=== PATIENT | female | born 1980 | race Caucasian/White ===

== ENCOUNTER → 2016-09-04 | Outpatient (CLI) | payer MEDICAID ==
[2006-06-08 07:35] VITALS: PULSE 70; TEMP 98.6
[~2016-09-04] MED LIST: ALDACTONE 25MG25 M1 PO; AMOXICILLIN 50500 MG PO; AMOXICILLIN 8751 TAB PO; B-12 100 MCG; CELEXA 20MG20 MG/TAB PO; CLARITIN 1010 MG/TAB PO; FLEXERIL 1010 MG/TAB PO; GLUCOPHAGE1000 MG PO; GLUCOPHAGE500 MG/TAB PO; HCTZ 25MG TAB25 MG PO; LEVAQUIN 5500 MG/TA1 PO; LEXAPRO 10MG10 MG PO; NATURE'S BLE1000 MCG PO; NORCO 325 MG-51 TAB PO; PHENERGAN W/CO120 M1 PO; PHENTERMINE15 MG PO; PREDNISONE20 MG PO; PRILOSEC 20MG20 MG PO; TOPROL XL 50MG50 MG PO; VITAMINC1000TA PO; VITAMIND3 5000 PO; ZESTRIL 20MG TA20 MG PO; ZITHROMAX Z PA250 MG PO; ZOCOR5 MG PO; ZOFRAN 4MG T4 MG/TAB PO
== END ==
LOC: COL.RAD 13:22
DX: K76.0 Fatty (change of) liver, not elsewhere classified (principal)

== ENCOUNTER → 2016-09-07 | Outpatient (CLI) | payer MEDICAID ==
[2006-06-08 07:35] VITALS: PULSE 70; TEMP 98.6
[~2016-09-07] VITALS: Ht 170.2 cm; Wt 114.3 kg
== END ==
LOC: LIGHT
DX: E66.8 Other obesity (principal); E88.81 Metabolic syndrome and other insulin resistance; I10 Essential (primary) hypertension; R73.01 Impaired fasting glucose; E66.01 Morbid (severe) obesity due to excess calories; Z68.41 Body mass index [BMI] 40.0-44.9, adult

== ENCOUNTER → 2016-09-11 | Outpatient (CLI) | payer MEDICAID ==
[2006-06-08 07:35] VITALS: PULSE 70; TEMP 98.6
== END ==
LOC: COL.RAD 08:06
DX: R10.84 Generalized abdominal pain (principal); R11.0 Nausea
CPT/HCPCS: A9537; J2805

== ENCOUNTER 2016-09-28 08:55 | Emergency (ER) | payer MEDICAID ==
[~2016-09-28] VITALS: Ht 170.2 cm; Wt 109.1 kg
[~2016-09-28 08:55] MED LIST changes: -AMOXICILLIN 50500 MG PO; -B-12 100 MCG; -VITAMINC1000TA PO; -VITAMIND3 5000 PO; -ZOFRAN 4MG T4 MG/TAB PO
[2016-09-28 08:57] VITALS: BP 141/93; PULSE 73
[2016-09-28] MEDS ORDERED: ZOFRAN 4MG T4 MG/TAB PO (10:12)
[2016-09-28] MEDS ORDERED: AMOXICILLIN 50500 MG PO (10:12)
[2016-09-28 10:45] VITALS: TEMP 97.9
[2016-11-06] MEDS ORDERED: VITAMINC1000TA PO (16:19)
[2016-11-06] MEDS ORDERED: VITAMIND3 5000 PO (16:20)
[2016-11-06] MEDS ORDERED: B-12 100 MCG (16:20)
== END 2016-09-28 10:45 | disposition home or self-care (01) ==
LOC: COL.ER 08:55
DX: H66.91 Otitis media, unspecified, right ear (principal); H61.21 Impacted cerumen, right ear; R11.0 Nausea; I10 Essential (primary) hypertension; Z87.891 Personal history of nicotine dependence

== ENCOUNTER → 2016-10-12 | Outpatient (CLI) | payer MEDICAID ==
[2006-06-08 07:35] VITALS: TEMP 98.6
[~2016-10-12] VITALS: Ht 170.2 cm; Wt 108.0 kg
[~2016-10-12] MED LIST changes: +AMOXICILLIN 50500 MG PO; +B-12 100 MCG; +VITAMINC1000TA PO; +VITAMIND3 5000 PO; +ZOFRAN 4MG T4 MG/TAB PO
[2016-10-12 17:06] VITALS: BP 112/50; PULSE 84
== END ==
LOC: LIGHT 15:27
DX: E88.81 Metabolic syndrome and other insulin resistance (principal); I10 Essential (primary) hypertension; E66.01 Morbid (severe) obesity due to excess calories; Z68.36 Body mass index [BMI] 36.0-36.9, adult

== ENCOUNTER → 2016-11-06 | Outpatient (CLI) | payer MEDICAID ==
[2006-06-08 07:35] VITALS: TEMP 98.6
[~2016-11-06] VITALS: Ht 170.2 cm; Wt 109.8 kg
[2016-11-06 16:21] VITALS: BP 146/100; PULSE 64
== END ==
LOC: LIGHT 15:06
DX: E88.81 Metabolic syndrome and other insulin resistance (principal); E66.01 Morbid (severe) obesity due to excess calories; Z68.37 Body mass index [BMI] 37.0-37.9, adult; Z71.3 Dietary counseling and surveillance; I10 Essential (primary) hypertension

== ENCOUNTER → 2016-11-09 | Outpatient (CLI) | payer MEDICAID ==
[2006-06-08 07:35] VITALS: PULSE 70; TEMP 98.6
== END ==
LOC: LIGHT 09:49
DX: Z02.89 Encounter for other administrative examinations (principal)

== ENCOUNTER 2016-11-22 13:46 | Inpatient (IN) | payer MEDICAID ==
[~2016-11-22] VITALS: Ht 170.2 cm; Wt 107.3 kg
[2016-12-13] VITALS (11 sets, daily range): BP systolic 117–150; BP diastolic 55–88; PULSE 51–86; TEMP 97.2–98.6
[2016-12-14 01:36] VITALS: BP 121/60; PULSE 54; TEMP 97.4
[2016-12-14 05:26] VITALS: BP 121/53; PULSE 46; TEMP 97.7
[2016-12-14 09:21] VITALS: BP 141/78; PULSE 58; TEMP 98.8
[2016-12-14 12:59] VITALS: BP 132/64; PULSE 56; TEMP 98.1
[2016-12-14 16:36] VITALS: BP 146/66; PULSE 55; TEMP 98.5
== END 2016-12-14 17:51 | disposition home or self-care (01) | DRG 621 ==
LOC: OR 12-13 07:33 → SURG 12-13 09:30 → JCC 12-13 12:40
PROVIDERS: Surgery
PROC: 0DB64Z3 Excision of Stomach, Percutaneous Endoscopic Approach, Vertical (ICD-10-PCS; principal; 2016-12-13 09:30)
DX: E66.01 Morbid (severe) obesity due to excess calories (principal); I10 Essential (primary) hypertension; E78.5 Hyperlipidemia, unspecified; Z68.41 Body mass index [BMI] 40.0-44.9, adult; Z87.891 Personal history of nicotine dependence
CPT/HCPCS: A9284; J0690; J1100; J1170; J1885; J2270; J2405; J2704; J2710; J3010; J7120; Q9968

== ENCOUNTER → 2016-11-27 | Outpatient (CLI) | payer MEDICAID ==
[2006-06-08 07:35] VITALS: PULSE 70; TEMP 98.6
== END ==
LOC: LIGHT
DX: Z02.89 Encounter for other administrative examinations (principal)

== ENCOUNTER → 2016-12-18 | Outpatient (CLI) | payer MEDICAID ==
[~2016-12-18] VITALS: Ht 170.2 cm; Wt 104.1 kg
[2016-12-18 13:32] VITALS: BP 131/89; PULSE 69
== END ==
LOC: LIGHT
DX: E88.81 Metabolic syndrome and other insulin resistance (principal); E66.01 Morbid (severe) obesity due to excess calories; Z68.35 Body mass index [BMI] 35.0-35.9, adult; Z71.3 Dietary counseling and surveillance; I10 Essential (primary) hypertension

== ENCOUNTER → 2017-06-19 | Outpatient (CLI) | payer MEDICAID | LOC: COL.RAD 13:17 | DX: S73.101A Unspecified sprain of right hip, initial encounter (principal) | CPT/HCPCS: A9585; Q9967 ==

== ENCOUNTER → 2017-12-27 | Outpatient (CLI) | payer MEDICAID | LOC: COL.RAD 12-19 08:00 | DX: M25.511 Pain in right shoulder (principal); M25.551 Pain in right hip | CPT/HCPCS: J3301; Q9967 ==

== ENCOUNTER → 2018-01-25 | Outpatient (CLI) | payer MEDICAID | LOC: COL.RAD 08:15 | DX: N18.1 Chronic kidney disease, stage 1 (principal) ==

== ENCOUNTER → 2018-01-30 | Outpatient (CLI) | payer MEDICAID | LOC: COL.RAD 12:30 | DX: M48.02 Spinal stenosis, cervical region (principal); M50.222 Other cervical disc displacement at C5-C6 level; M99.71 Connective tissue and disc stenosis of intervertebral foramina of cervical region; M40.292 Other kyphosis, cervical region ==

== ENCOUNTER → 2018-06-06 | Outpatient (CLI) | payer MEDICAID | LOC: COL.RAD 12:30 | DX: M51.26 Other intervertebral disc displacement, lumbar region (principal); M48.061 Spinal stenosis, lumbar region without neurogenic claudication ==

== ENCOUNTER → 2018-06-14 | Outpatient (CLI) | payer MEDICAID | LOC: COL.RAD 13:00 | DX: M25.511 Pain in right shoulder (principal); M25.551 Pain in right hip | CPT/HCPCS: J3301; Q9967 ==

== ENCOUNTER → 2018-09-19 | Outpatient (CLI) | payer MEDICAID | LOC: MHCPAIN 13:24 | DX: G89.29 Other chronic pain (principal); M54.12 Radiculopathy, cervical region; M47.812 Spondylosis without myelopathy or radiculopathy, cervical region; R51 Headache; M54.81 Occipital neuralgia; M48.02 Spinal stenosis, cervical region | CPT/HCPCS: G0463 ==

== ENCOUNTER → 2019-09-10 | Outpatient (CLI) | payer MEDICAID | LOC: COL.RAD 08-25 13:15 | DX: M50.122 Cervical disc disorder at C5-C6 level with radiculopathy (principal); M48.02 Spinal stenosis, cervical region ==

== ENCOUNTER → 2020-01-13 | Outpatient (CLI) | payer MEDICAID | LOC: MC.RAD 01-08 14:00 | DX: Z12.31 Encounter for screening mammogram for malignant neoplasm of breast (principal) ==

== ENCOUNTER → 2020-01-29 | Outpatient (CLI) | payer MEDICAID | LOC: COL.RAD 13:45 | DX: M25.551 Pain in right hip (principal) | CPT/HCPCS: J3301; Q9967 ==

== ENCOUNTER 2020-03-19 10:45 | Outpatient (RCR) | payer MEDICAID | END 2020-04-26 | disposition home or self-care (01) | LOC: WSPT | DX: M76.31 Iliotibial band syndrome, right leg (principal) ==

== ENCOUNTER → 2020-08-27 | Outpatient (CLI) | payer MEDICAID | LOC: COL.RAD | DX: K59.00 Constipation, unspecified (principal) ==

== ENCOUNTER → 2020-09-01 | Outpatient (CLI) | payer MEDICAID | LOC: COL.RAD | DX: K59.00 Constipation, unspecified (principal) ==

== ENCOUNTER → 2020-09-07 | Outpatient (CLI) | payer MEDICAID | LOC: COL.RAD | DX: E28.2 Polycystic ovarian syndrome (principal) ==

== ENCOUNTER 2021-12-06 14:26 | Observation (INO) | payer MEDICAID ==
[~2021-12-06] VITALS: Ht 17.8 cm; Wt 109.7 kg
[2021-12-06] VITALS (261 sets, daily range): BP systolic 145–161; BP diastolic 89–110; PULSE 83–105; TEMP 98.7; O2SAT 95–100
[~2021-12-06 14:26] MED LIST changes: +PRIL40 PO; -PRILOSEC 20MG20 MG PO
[2021-12-06 15:09] LABS: BASO # 0.1 K/mm3 (0.0-0.2); BASO % 0.6 % (0.0-2.0); EOS # 0.3 K/mm3 (0.0-0.7); EOS % 2.9 % (0.0-4.0); GRAN # 6.2 K/mm3 (1.4-6.5); GRAN % 64.1 % (42.2-75.2); HEMATOCRIT 41.3 % (37.0-47.0); HEMOGLOBIN 13.7 g/dl (12.5-16.0); LYMPH # 2.2 K/mm3 (1.2-3.4); LYMPH % 23.1 % (20.0-51.0); MEAN CELL VOLUME 85 fl (80.0-100.0); MEAN CORPUSCULAR HEMOGLOBIN 28 pg (27-31); MEAN CORPUSCULAR HGB CONC 33 g/dl (33.0-37.0); MEAN PLATELET VOLUME 10.1 fl (7.4-10.4); MONO # 0.9 K/mm3 (0.1-0.6); PLATELET COUNT 275 K/mm3 (130-400); RED BLOOD COUNT 4.88 M/mm3 (4.10-5.30); REDCELL DISTRIBUTION WIDTH-CV 13.5 % (11.5-14.5)
[2021-12-06 15:22] LABS: INR 0.9 (0.8-3.0); PROTHROMBIN TIME 10.8 SECONDS (9.7-12.8)
[2021-12-06 15:25] LABS: PARTIAL THROMBOPLASTIN TIME 30.2 SECONDS (26.0-37.0)
[2021-12-06 15:27] LABS: ALANINE AMINOTRANSFERASE 14 U/L (0-55); ALBUMIN 3.5 gm/dL (3.5-5.0); ALKALINE PHOSPHATASE 62 U/L (40-150); ANION GAP 11 mmol/L (7-16); AST,SGOT 12 U/L (5-34); BILIRUBIN,TOTAL 0.2 mg/dL (0.2-1.2); BLOOD UREA NITROGEN 11 mg/dL (7-19); CALCIUM 9.5 mg/dL (8.4-10.2); CARBON DIOXIDE 25 mmol/L (22-29); CHLORIDE 107 mmol/L (98-107); CREATININE, serum 1.08 mg/dL (0.57-1.11); GLUCOSE 99 mg/dL (70-99); POTASSIUM 3.7 mmol/L (3.5-4.5); SODIUM 143 mmol/L (136-145); TOTAL PROTEIN 7.1 gm/dL (6.2-8.1)
[2021-12-06 15:37] LABS: TROPONIN-I < 0.010 ng/mL (0.00-0.033)
--- NOTE | 2021-12-06 18:01 | NUR ---
Pt to ICU room 4. BS report was received from Yelena HICKEY in the ER. Pt was amb to bathroom in ER, then pt was transferred via wheelchair to ICU arriving in ICU at 1735. Nicardipine gtt rate changed to 5 mg/hr prior to leaving ER. Upon arrival to ICU, bp is 145/97, gtt rate changed to 2.5mg/hr. subsequenty bps were 150/102, 161/91, 146/89., and gtt stopped at 1802 after last reading per orders to keep bp above 160. Pt is awake and alert, pwd, reports feeling "palpitations" and feeling like "heart is racing on and off", "jittery" .
[2021-12-06] MEDS ORDERED: ZYRTEC 10MG10 MG PO (18:23)
[2021-12-06] MEDS ORDERED: BENTYL 10MG10 MG/CAP PO (18:24)
[2021-12-06] MEDS ORDERED: PROPECIA1 MG PO (18:25)
[2021-12-06] MEDS ORDERED: MOTRIN 800800 MG/TAB PO (18:26)
[2021-12-06] MEDS ORDERED: NEURONTIN100 MG/CAP PO (18:26)
[2021-12-06] MEDS ORDERED: LINZESS145CAP PO (18:27)
[2021-12-06] MEDS ORDERED: HYZAAR 50-12.1 UDTAB PO (18:28)
[2021-12-06] MEDS ORDERED: GLUCOPHAGE1000 MG PO (18:29)
[2021-12-06] MEDS ORDERED: MIRALAX PA17 GM/Dose PO (18:31)
[2021-12-06] MEDS ORDERED: ZOFRAN ODT4 MG PO (18:31)
[2021-12-06] MEDS ORDERED: ALDACTONE50 MG PO (18:31)
[2021-12-06] MEDS ORDERED: ZANAFLEX2 MG PO (18:32)
--- NOTE | 2021-12-06 20:02 | NUR ---
Assessment complete and charted. Denies needs. Alert and orientated. Call light in reach.
[2021-12-06 21:49] LABS: CALCIUM 9.5 mg/dL (8.4-10.2); CREATININE, serum 1.07 mg/dL (0.57-1.11); MAGNESIUM 1.9 mg/dL (1.6-2.6); POTASSIUM 3.7 mmol/L (3.5-4.5)
[2021-12-07] VITALS (387 sets, daily range): BP systolic 108–180; BP diastolic 67–99; PULSE 53–77; TEMP 97.6–98.2; O2SAT 90–100
[2021-12-07 06:16] LABS: BASO % 0.5 % (0.0-2.0); EOS # 0.3 K/mm3 (0.0-0.7); EOS % 3.5 % (0.0-4.0); GRAN # 4.2 K/mm3 (1.4-6.5); GRAN % 57.1 % (42.2-75.2); HEMATOCRIT 40.1 % (37.0-47.0); HEMOGLOBIN 12.9 g/dl (12.5-16.0); LYMPH # 2.2 K/mm3 (1.2-3.4); LYMPH % 29.5 % (20.0-51.0); MEAN CELL VOLUME 88 fl (80.0-100.0); MEAN CORPUSCULAR HEMOGLOBIN 28 pg (27-31); MEAN CORPUSCULAR HGB CONC 32 g/dl (33.0-37.0); MONO # 0.7 K/mm3 (0.1-0.6); MONO % 9.1 % (1.7-9.3); PLATELET COUNT 250 K/mm3 (130-400); RED BLOOD COUNT 4.57 M/mm3 (4.10-5.30); REDCELL DISTRIBUTION WIDTH-CV 13.8 % (11.5-14.5)
--- NOTE | 2021-12-07 06:20 | NUR ---
Patient had uneventful night. Going to 307 this AM. Patient aware. Call light in reach.
[2021-12-07 06:29] LABS: ANION GAP 10 mmol/L (7-16); BLOOD UREA NITROGEN 11 mg/dL (7-19); CALCIUM 9.4 mg/dL (8.4-10.2); CARBON DIOXIDE 26 mmol/L (22-29); CHLORIDE 104 mmol/L (98-107); CHOLESTEROL 202 mg/dL (0-199); CREATININE, serum 0.91 mg/dL (0.57-1.11); GLUCOSE 117 mg/dL (70-99); HDL CHOLESTEROL 40 mg/dL (40-60); LDL CHOLESTEROL 136 mg/dL; MAGNESIUM 2.1 mg/dL (1.6-2.6); PHOSPHOROUS 2.8 mg/dL (2.3-4.7); POTASSIUM 3.9 mmol/L (3.5-4.5); SODIUM 140 mmol/L (136-145); TRIGLYCERIDE 130 mg/dL (0-149)
[2021-12-07 06:49] LABS: TSH w REFLEX 0.507 uIU/mL (0.350-4.940)
[2021-12-07 06:53] LABS: TROPONIN-I < 0.010 ng/mL (0.00-0.033)
--- NOTE | 2021-12-07 07:19 | NUR ---
Report given to RUPERTO Beard
--- NOTE | 2021-12-07 09:28 | NUR ---
0843- Report and patient hand off done with RUPERTO Peace on medical floor.
--- NOTE | 2021-12-07 09:33 | NUR ---
Patient transferred from ICU to room 307. Medication, pharmacy, and allergies reviewed. Shift assessment completed. Patient HTN, protocols being followed. All other VSS. Patient C/O of headache rated a 3/10. Patient recieved motrin before transfering to floor and states that headache is improving. Upon check of BG, BG elevated, but patient had just eaten breakfast. Neuro checks WNL. Patient denies any further pain, discomfort, SOA, or further needs a this time. Call light in reach.
--- NOTE | 2021-12-07 09:41 | NUR ---
Initial visit; Patient thanked Commodity Buyer for looking in on her, offering encouragement and prayer. Commodity Buyer will follow up while Oxana is a patient at [facility].
[2021-12-07] MEDS ORDERED: APRESOLINE 10MG10 MG PO (14:48)
[2021-12-07] MEDS ORDERED: LIPITOR20 MG PO (14:49)
[2021-12-07] MEDS ORDERED: ADVOCATE BLOOD1 EAC1 MC ×2 (14:50→15:43)
--- NOTE | 2021-12-07 19:02 | NUR ---
PT DC HOME, VSS ,ORIENT AND ALERT, IV DISCONTINUED TIP INTACT,DISCHARGE SUMMARY GIVEN, PT ESCORTED OUT OF THE UNIT IN A COMPANY OF A FAMILY MEMBER, AMBULATORY,
== END 2021-12-07 17:32 | disposition home or self-care (01) ==
LOC: COL.ER 14:26 → ICU 16:48 → MEDICAL 16:48
PROVIDERS: Emergency Medicine; Student in an Organized Health Care Education/Training Program; ADMIT Internal Medicine
DX: I16.1 Hypertensive emergency (principal); R07.9 Chest pain, unspecified; E78.5 Hyperlipidemia, unspecified; K44.9 Diaphragmatic hernia without obstruction or gangrene; K21.9 Gastro-esophageal reflux disease without esophagitis; R91.1 Solitary pulmonary nodule; Z79.899 Other long term (current) drug therapy
CPT/HCPCS: G0378; J7050; Q9967

== ENCOUNTER → 2022-10-11 | Outpatient (CLI) | payer MEDICAID ==
[~2022-10-11] MED LIST changes: +ADVOCATE BLOOD1 EAC1 MC; +ALDACTONE50 MG PO; +APRESOLINE 10MG10 MG PO; +BENTYL 10MG10 MG/CAP PO; +HYZAAR 50-12.1 UDTAB PO; +LINZESS145CAP PO; +LIPITOR20 MG PO; +MIRALAX PA17 GM/Dose PO; +MOTRIN 800800 MG/TAB PO; +NEURONTIN100 MG/CAP PO; +PROPECIA1 MG PO; +ZANAFLEX2 MG PO; +ZOFRAN ODT4 MG PO; +ZYRTEC 10MG10 MG PO
== END ==
LOC: COL.RAD 13:05
DX: M47.812 Spondylosis without myelopathy or radiculopathy, cervical region (principal); M48.02 Spinal stenosis, cervical region; R20.2 Paresthesia of skin

== ENCOUNTER 2023-04-09 10:26 | Day surgery (SDC) | payer MEDICAID ==
[~2023-04-09] VITALS: Ht 170.2 cm; Wt 99.6 kg
--- NOTE | 2023-04-09 11:03 | NUR ---
Initial visit; Patient requested prayer prior to her surgical procedure. Ambulatory Nurse offered encouragement and prayer with Oxana and Significant Other; James prior to procedure. Oxana thanked Ambulatory Nurse.
[2023-04-09] MEDS ORDERED: COZAAR100 MG PO (11:07)
[2023-04-09] MEDS ORDERED: CELEBREX 1100 MG/CAP (11:10)
[2023-04-09] MEDS ORDERED: XANAX .25M0.25 MG/TA PO (11:11)
[2023-04-09] MEDS ORDERED: FLOVENT 110MCG7.9 GM IH (11:12)
[2023-04-09] MEDS ORDERED: ADDERALL20 MG PO (11:14)
[2023-04-09] MEDS ORDERED: WEGOVY1.7 MG/0.7 SQ (11:15)
[2023-04-09 11:17] VITALS: BP 169/95; PULSE 80; TEMP 98.8
--- NOTE | 2023-04-09 12:07 | NUR ---
PATIENT AMBULATED TO BAY 6 WITH STEADY GAIT. ALERT AND ORIENTED X4. PATIENT STATED UNDERSTANDING OF PROCEDURE. URINE OBTAINED AND SENT TO LAB. CONSENTS SIGNED. ASSESSMENT COMPLETED. 20G IV STARTED IN RIGHT HAND. LR INFUSING WITHOUT DIFFICULTIES. WEASAND TRIMMER IN TO VISIT WITH PATIENT. HOLDEN LEVIN NOTIFIED OF B/P 169/95. NO FURTHER NEEDS NOTED. RESTING IN COT. CALL LIGHT IN REACH. JAYESH AT BEDSIDE.
[2023-04-09] MEDS ORDERED: NORCO 325 MG-51 TAB PO (14:03)
[2023-04-09 15:05] VITALS: BP 108/69; PULSE 63; TEMP 96.9
--- NOTE | 2023-04-09 15:05 | NUR ---
1505 PATIENT RETURNS TO ROOM 6 VIA CART. PATIENT IS LETHARGIC, BUT ALERTS TO VERBAL STIMULI. RESPIRATIONS EVEN AND UNLABORED, ON ROOM AIR. VITAL SIGNS OBTAINED. PATIENT STATES THAT SHE IS HAVING SOME NAUSEA AND GAS PAIN. THIS NURSE HAD PATIENT SNIFF ON AN ALCOHOL PAD AND SAT HER UP IN BED. AFTER A FEW MINUTES PATIENT STATES THAT THE NAUSEA HAS SUBSIDED. PATIENT SO IN ROOM. PATIENT REQUESTED TOAST, JELLO, AND WATER. NO DIFFICULTIES SWALLOWING. 5 LAP SITES TO ABDOMEN, ALL CDI. 1540 PATIENT STATES THAT HER NAUSEA HAS INCREASED. THIS NURSE ADMINISTERED PRN NAUSEA MEDICATION PER MD ORDER. 1600 PATIENT STATES THAT HER NAUSEA HAS SUBSIDED. THIS NURSE DISCONTINUED IV FROM RIGHT WRIST WITH NO DIFFICULTIES. IV CATHETER INTACT. 1620 THIS NURSE REVIEWED DISCHARGE INSTRUCTIONS WITH PATIENT AND PATIENT SO. BOTH VERBALIZED UNDERSTANDING. 1630 PATIENT DRESSES SELF AND VOIDS WITH NO DIFFICULTIES. 1640 PATIENT DISCHARGED FROM UNIT VIA WHEELCHAIR IN STABLE CONDITION.
[2023-04-09 15:20] VITALS: BP 141/76; PULSE 65
[2023-04-09 15:35] VITALS: BP 144/94; PULSE 71
[2023-04-09 15:50] VITALS: BP 129/67; PULSE 84
== END 2023-04-09 16:40 | disposition home or self-care (01) ==
LOC: SDCO 10:26
DX: K80.10 Calculus of gallbladder with chronic cholecystitis without obstruction (principal); K44.9 Diaphragmatic hernia without obstruction or gangrene; K21.9 Gastro-esophageal reflux disease without esophagitis; E66.01 Morbid (severe) obesity due to excess calories; Z98.84 Bariatric surgery status; Z79.899 Other long term (current) drug therapy; Z68.39 Body mass index [BMI] 39.0-39.9, adult; Z87.891 Personal history of nicotine dependence
CPT/HCPCS: J0690; J1100; J1170; J1885; J2371; J2405; J2550; J2704; J3010; J7120

== ENCOUNTER → 2024-02-12 | Outpatient (CLI) | payer MEDICAID ==
[~2024-02-12] MED LIST changes: +ADDERALL20 MG PO; +CELEBREX 1100 MG/CAP; +COZAAR100 MG PO; +FLOVENT 110MCG7.9 GM IH; +WEGOVY1.7 MG/0.7 SQ; +XANAX .25M0.25 MG/TA PO
== END ==
LOC: MC.RAD 11:01
DX: Z12.31 Encounter for screening mammogram for malignant neoplasm of breast (principal)